=== PATIENT | female | born 1955 | race Caucasian/White ===

== ENCOUNTER 2017-03-02 13:21 | Outpatient (CLI) | payer OTHER | END 2017-03-02 13:22 | disposition home or self-care (01) | DX: Z12.31 Encounter for screening mammogram for malignant neoplasm of breast (principal) ==

== ENCOUNTER 2020-09-03 13:52 | Outpatient (CLI) | payer OTHER ==
--- NOTE | 2020-09-04 15:35 | Mammography Report ---
BILATERAL DIGITAL SCREENING MAMMOGRAM 3D/2D: 09/03/2020 CLINICAL: Routine screening. Comparison is made to exam dated: 03/02/2017 mammogram - [facility]. There are sca ttered fibroglandular elements in both breasts. No significant masses, calcifications, or other findings are seen in either breast. There has been no significant interval change. IMPRESSION: NEGATIVE There is no mammographic evidence of malignancy. A 1 year screening mammogram is recommended. This exam was interpreted at Station ID: [id number]. NOTE: For mammograms, a report in lay terms will be sent to the patient. Approximately 15% of breast malignancies will not be visualized mammographically. In the management of a palpable breast mass, a negative mammogram must not discourage biopsy of a clinically suspicious lesion. Electronically Signed By: Gracie zaman/sowmya:09/03/2020 17:04:13 ACR BI-RADS Category 1: Negative 3341F PARENCHYMAL PATTERN: (A) - The breast(s) demonstrate(s) scattered fibroglandular densities. BI-RADS CATEGORY: (1) - 1 RECOMMENDATION: (ANNUAL) - Recommend routine annual screening mammography. [id number] 1 year screening LATERALITY: (B)
== END 2020-09-03 13:53 | disposition home or self-care (01) ==
LOC: DI 13:52
PROVIDERS: ATTEND Nurse Practitioner Family
DX: Z12.31 Encounter for screening mammogram for malignant neoplasm of breast (principal)
CPT/HCPCS: 77063; 77067

== ENCOUNTER 2021-01-02 11:57 | Emergency (ER) | payer OTHER ==
--- NOTE | 2021-01-02 12:21 | ED Physician Documentation ---
PD HPI CHEST PAIN - Stated complaint Stated Complaint: NAUSEA - Chief complaint Chief Complaint: Abd Pain - History obtained from History obtained from: Patient - Additional information Additional information: 65-year-old woman with history of hypertension and hysterectomy presents with epigastric pain that is postprandial, sometimes immediately after eating and sometimes delayed. Is been going on for the last year. It radiates to the left shoulder. Then she gets nausea and vomits and feels better. She is never had this worked up. Today she presents because last night the vomit was quite bl ack. This the first time that it happened. Review of Systems Ten Systems: 10 systems reviewed and negative Constitutional: denies: Fever, Myalgias, Fatigue Cardiac: denies: Chest pain / pressure, Palpitations Respiratory: denies: Dyspnea, Cough PD PAST MEDICAL HISTORY - Present Medications Home Medications: Ambulatory Orders Medication Instructions Recorded Confirmed Lisinopril [Zestril] 1 tab PO DAILY 01/02/21 01/02/21 Omeprazole 40 mg PO DAILY #30 cap 01/02/21 Ondansetron Odt [Zofran] 4 mg TL Q6H PRN #10 tablet 01/02/21 - Allergies Allergies/Adverse Reactions: Allergies Allergy/AdvReac Type Severity Reaction Status Date / Time Sulfa (Sulfonamide Allergy Itching Verified 01/02/21 12:13 Antibiotics) PD ED PE NORMAL - Vitals Vital signs reviewed: Yes - General General: Alert and oriented X 3, No acute distress - HEENT HEENT: PERRL, EOMI - Neck Neck: Supple, no meningeal sign, No bony TTP - Cardiac Cardiac: RRR, No murmur - Respiratory Respiratory: No respiratory distress, Clear bilaterally - Abdomen Abdomen: Soft, Non tender - Back Back: No CVA TTP, No spinal TTP - Derm Derm: Normal color - Neuro Neuro: Alert and oriented X 3, Normal speech Results - Vitals Vitals: Vital Signs - 24 hr 01/02/21 12:08 Temperature 36.7 C Heart Rate 89 Respiratory 16 Rate Blood Pressure 220/92 H O2 Saturation 96 Oxygen O2 Source Room air - EKG (time done) 1244 Rate: Rate (enter#) (63) Rhythm: NSR [place]: Normal Intervals: Normal IA, Other (borderline IVCD) QRS: Low voltage Ischemia: Normal ST segments Computer interpretation: Agree with computer - Labs Labs: Laboratory Tests 01/02/21 01/02/21 01/02/21 12:30 12:30 12:30 WBC 7.7 RBC 4.34 Hgb 13.1 Hct 40.6 MCV 93.5 MCH 30.2 MCHC 32.3 RDW 13.2 Plt Count 188 MPV 10.4 Neut # (Auto) 5.5 Lymph # (Auto) 1.5 Granite # (Auto) 0.6 Eos # (Auto) 0.0 Baso # (Auto) 0.0 Absolute Nucleated RBC 0.00 Nucleated RBC % 0.0 PT 13.9 H INR 1.3 H Sodium Potassium Chloride Carbon Dioxide Anion Gap BUN Creatinine Estimated GFR (MDRD) Glucose Calcium Total Bilirubin AST ALT Alkaline Phosphatase Troponin I High Sens Total Protein Albumin Globulin Albumin/Globulin Ratio Lipase Blood Type O POSITIVE Antibody Screen NEGATIVE 01/02/21 01/02/21 12:30 12:30 WBC RBC Hgb Hct MCV MCH MCHC RDW Plt Count MPV Neut # (Auto) Lymph # (Auto) Granite # (Auto) Eos # (Auto) Baso # (Auto) Absolute Nucleated RBC Nucleated RBC % PT INR Sodium 139 Potassium 3.4 L Chloride 100 L Carbon Dioxide 24 Anion Gap 15.0 H BUN 13 Creatinine 0.9 Estimated GFR (MDRD) 63 L Glucose 103 H Calcium 9.6 Total Bilirubin 0.9 AST 33 ALT 30 Alkaline Phosphatase 129 H Troponin I High Sens 3.8 Total Protein 7.8 Albumin 4.4 Globulin 3.4 Albumin/Globulin Ratio 1.3 Lipase 28 Blood Type Antibody Screen PD MEDICAL DECISION MAKING - ED course ED course: This is a steven 65-year-old woman with epigastric pain postprandial for a year with black vomitus last night. Her hemodynamics and H&H are reassuring, not clear that this was blood. Given the radiation to the left shoulder a cardiac work-up was also done. Results are normal. She understands that she needs to follow-up for upper endoscopy, note she also has never had a colonoscopy. Will place on a PPI and as needed Zofran in the interim. Departure - Departure Disposition: 01 Home, Self Care Clinical Impression: Abdominal pain Qualifiers: Abdominal location: epigastric Qualified Code(s): R10.13 - Epigastric pain Condition: Good Record reviewed to determine appropriate education?: Yes Instructions: ED PUD Prescriptions: Omeprazole 40 mg PO DAILY #30 cap Ondansetron Odt [Zofran] 4 mg TL Q6H PRN #10 tablet PRN Reason: Nausea / Vomiting Comments: As discussed, it seems most likely that your pain is from ulcer disease, next most appropriate test would be upper endoscopy. Call your primary care provider and discuss to obtain referral. We are starting a proton pump inhibitor in the meantime which should be helpful and nausea medicine as needed. As discussed, you are also overdue for colonoscopy, she may well as well refer you for both at the same time. Return if worsening or if new symptoms develop.
[2021-01-02 12:38] LABS: BASOPHILS % (AUTO) 0.4 %; EOSINOPHILS % (AUTO) 0.3 %; HCT - HEMATOCRIT 40.6 % (37.0-47.0); HGB - HEMOGLOBIN 13.1 g/dL (12.0-16.0); LYMPHOCYTES # (AUTO) 1.5 10^3/uL (1.5-3.5); LYMPHOCYTES % (AUTO) 19.8 %; MEAN CORPUSCULAR HEMOGLOBIN 30.2 pg (27.0-31.0); MEAN CORPUSCULAR HGB CONC 32.3 g/dL (32.0-36.0); MEAN CORPUSCULAR VOLUME 93.5 fL (81.0-99.0); MEAN PLATELET VOLUME 10.4 fL (7.9-10.8); MONOCYTES # (AUTO) 0.6 10^3/uL (0.0-1.0); MONOCYTES % (AUTO) 7.5 %; NEUTROPHILS # (AUTO) 5.5 10^3/uL (1.5-6.6); NEUTROPHILS % (AUTO) 71.7 %; PLT - PLATELET COUNT 188 10^3/uL (130-450); RED BLOOD COUNT 4.34 10^6/uL (4.20-5.40); RED CELL DISTRIBUTION WIDTH 13.2 % (12.0-15.0); WHITE BLOOD COUNT 7.7 x10^3/uL (4.8-10.8)
[2021-01-02 12:43] LABS: INR 1.3 (0.8-1.2); PT - PROTHROMBIN TIME 13.9 secs (9.9-12.6)
[2021-01-02 12:58] LABS: ALBUMIN 4.4 g/dL (3.2-5.5); ALBUMIN/GLOBULIN RATIO 1.3 (1.0-2.2); BILIRUBIN,TOTAL 0.9 mg/dL (0.2-1.0); CALCIUM 9.6 mg/dL (8.5-10.3); CREATININE 0.9 mg/dL (0.4-1.0); POTASSIUM 3.4 mmol/L (3.5-5.0); TOTAL PROTEIN 7.8 g/dL (6.7-8.2)
[2021-01-02 13:56] VITALS: BP 159/84
== END 2021-01-02 13:56 | disposition home or self-care (01) ==
LOC: ED 11:57
DX: R10.13 Epigastric pain (principal); R11.2 Nausea with vomiting, unspecified; M25.512 Pain in left shoulder; I10 Essential (primary) hypertension
CPT/HCPCS: 80053; 83690; 84484; 85025; 85610; 86850; 86900; 86901; 93005; 99283

== ENCOUNTER 2021-02-26 07:23 | Outpatient (CLI) | payer OTHER ==
--- NOTE | 2021-02-26 10:14 | Ultrasound Report ---
PROCEDURE: Abdomen Limited INDICATIONS: RUQ PAIN TECHNIQUE: Real-time focused scanning was performed of the abdomen, with image documentation. COMPARISON: None. FINDINGS: Limited right upper quadrant ultrasound at clinician request. The liver is echogenic, cons istent with fatty infiltration but no hepatic mass or intrahepatic biliary distention is found. The g allbladder contains a large immobile stone at the gallbladder neck, measuring up to 2.3 cm but the ga llbladder wall is normal in thickness at 2.6 mm. There is irregular margination at the gallbladder fu ndus where a possible mass lesion measuring up to 1.3 x 1.2 x 0.9 cm is found. This appears to have a small amount of internal blood flow on limited duplex Doppler sonographic assessment. IMPRESSION: Relatively large gallstone fixed in position at the gallbladder neck, with no generalized gallbladder wall thickening that would indicate definite acute cholecystitis. However, there is focal thickening of the gallbladder wall with internal blood flow at the gallbladder fundus margin, which could repre sent focal cholecystitis and even possibly a gallbladder neoplasm. Given these findings surgical cons ultation appears warranted. Reviewed by: Jonathan Ty MD on 02/26/2021 10:12 AM PDT Approved by: Jonathan Ty MD on 02/26/2021 10:12 AM PDT Station ID: [id number]
== END 2021-02-26 07:24 | disposition home or self-care (01) ==
LOC: DI 07:23
PROVIDERS: ATTEND Surgery
DX: K80.20 Calculus of gallbladder without cholecystitis without obstruction (principal); R93.2 Abnormal findings on diagnostic imaging of liver and biliary tract

== ENCOUNTER 2021-02-28 08:46 | Outpatient (CLI) | payer OTHER ==
[2021-02-28 09:32] LABS: ALBUMIN 4.3 g/dL (3.2-5.5); ALBUMIN/GLOBULIN RATIO 1.4 (1.0-2.2); BILIRUBIN,TOTAL 0.8 mg/dL (0.2-1.0); CALCIUM 9.3 mg/dL (8.5-10.3); CREATININE 0.8 mg/dL (0.4-1.0); POTASSIUM 3.7 mmol/L (3.5-5.0); TOTAL PROTEIN 7.3 g/dL (6.7-8.2)
== END 2021-02-28 08:47 | disposition home or self-care (01) ==
LOC: LAB 08:46
PROVIDERS: ATTEND Surgery
DX: Z13.228 Encounter for screening for other metabolic disorders (principal)
CPT/HCPCS: 36415; 80053

== ENCOUNTER 2021-03-21 13:59 | Outpatient (CLI) | payer OTHER | END 2021-03-21 14:00 | disposition home or self-care (01) | LOC: COV 13:59 | PROVIDERS: ATTEND Surgery | DX: Z01.812 Encounter for preprocedural laboratory examination (principal); K80.20 Calculus of gallbladder without cholecystitis without obstruction; Z20.822 Contact with and (suspected) exposure to COVID-19 ==

== ENCOUNTER 2021-03-24 06:16 | Day surgery (SDC) | payer OTHER ==
[~2021-03-24 06:16] MED LIST: ceFAZolin 2 GM/50 ML 2 GM/50 ML BAG IV ONE
--- OUTSIDE RECORDS SUMMARY | 2021-03-24 06:18 | EXTERNAL MEDICAL SUMMARY RPT | Continuity of Care Document ---
:1955 Demographics Phone Unavailable Preferred Language Unknown Marital Status Unknown Scientology Affiliation Unknown Race Unknown Ethnic Group Unknown Author Organization [facility] Address [address] [phone] Phone Allergies Encounters Medications Problems Results
[2021-03-24] MEDS ORDERED: LACTATED RINGERS 1,000 ML IV ONE (06:28)
[2021-03-24 06:41] VITALS: BP 150/81
[2021-03-24] MEDS ORDERED: PROPOFOL 200 MG/20 ML VIAL IVP ONE (07:12)
[2021-03-24] MEDS ORDERED: ROCURONIUM 50 MG/5 ML VIAL ONE (07:13)
[2021-03-24] MEDS ORDERED: BUPIVACAINE 0.5% PF 30 ML VIAL ONE (07:13)
[2021-03-24] MEDS ORDERED: MIDAZOLAM 2 MG/2 ML VIAL ONE (07:14)
[2021-03-24] MEDS ORDERED: fentaNYL 100 MCG/2 ML VIAL ONE (07:14)
[2021-03-24] MEDS ORDERED: LIDOCAINE-MPF 2% 5 ML VIAL ONE (07:15)
--- NOTE | 2021-03-24 07:21 | ANESTHESIA ---
Pre-Anesthesia VS, & Labs - Diagnosis symptomatic cholelithiasis - Procedure lapararoscopic cholecystectomy Vital Signs: Temp Pulse Resp BP Pulse Ox 36.2 C L 65 16 150/81 H 99 03/24/21 06:39 03/24/21 06:39 03/24/21 06:39 03/24/21 06:39 03/24/21 06:39 Height: 5 ft 8 in Weight (kg): 89.9 kg Body Mass Index: 30.1 BMI Classification: Obese - NPO >8 hours - Is Patient ?: No - Lab Results Lab results reviewed: Yes Home Medications and Allergies Lisinopril [Zestril] 40 mg PO QPM 01/02/21 Allergies/Adverse Reactions: Allergies Allergy/AdvReac Type Severity Reaction Status Date / Time Sulfa (Sulfonamide Allergy Itching Verified 03/24/21 06:47 Antibiotics) Anes History & Medical History - Anesthetic History Anesthesia Complications: reports: No previous complications Family history of Anesthesia Complications: Denies Family history of Malignant Hyperthermia: Denies - Medical History Cardiovascular: reports: Hypertension, Murmur Pulmonary: reports: None Gastrointestinal: reports: Cholelithiasis Urinary: reports: None Musculoskeletal: reports: None Endocrine/Autoimmune: reports: None Skin: reports: None Smoking Status: Never smoker - Surgical History Gynecologic: reports: Hysterectomy Exam General: Alert, Oriented x3, Cooperative Dental: WNL Mouth Openin Fingerbreadth Neck Mobility: Normal Mallampati classification: II Thyromental Distance: 4-6 cm Respiratory: Lungs clear, Normal breath sounds, No respiratory distress Cardiovascular: Regular rate Neurological: Normal speech Mental/Cognitive Status: Alert/Oriented X3, Normal for patient Plan Anesthesia Type: General Consent for Procedure(s) Verified and Reviewed: Yes Code Status: Attempt Resuscitation ASA classification: 2-Mild systemic disease Is this case an emergency?: No
== END 2021-03-24 06:17 | disposition home or self-care (01) ==
LOC: SDS 06:16
PROVIDERS: ATTEND Surgery
DX: Z53.9 Procedure and treatment not carried out, unspecified reason (principal)

== ENCOUNTER 2021-03-27 06:33 | Day surgery (SDC) | payer OTHER ==
--- OUTSIDE RECORDS SUMMARY | 2021-03-27 06:35 | EXTERNAL MEDICAL SUMMARY RPT | Continuity of Care Document ---
:1955 Demographics Phone Unavailable Preferred Language Unknown Marital Status Unknown Anabaptism Affiliation Unknown Race Unknown Ethnic Group Unknown Author Organization [facility] Address [address] [phone] Phone Allergies Encounters Medications Problems Results
[2021-03-27] MEDS ORDERED: LACTATED RINGERS 1,000 ML IV ONE ×2 (06:42→09:44)
[2021-03-27] MEDS ORDERED: MIDAZOLAM 2 MG/2 ML VIAL ONE (06:51)
[2021-03-27] MEDS ORDERED: fentaNYL 100 MCG/2 ML VIAL ONE ×2 (06:51→09:24)
[2021-03-27] MEDS ORDERED: ROCURONIUM 50 MG/5 ML VIAL ONE (06:53)
[2021-03-27] MEDS ORDERED: LIDOCAINE-MPF 2% 5 ML VIAL ONE (06:53)
[2021-03-27] MEDS ORDERED: PROPOFOL 200 MG/20 ML VIAL IVP ONE (06:53)
[2021-03-27] MEDS ORDERED: BUPIVACAINE 0.5% PF 30 ML VIAL ONE (07:18)
[2021-03-27] MEDS ORDERED: IOTHALAMATE MEGLUMINE 50 ML VIAL ONE (07:18)
[2021-03-27] MEDS ORDERED: MORPHINE 2 MG/ML CARPUJECT IVP PRN (07:24)
[2021-03-27] MEDS ORDERED: fentaNYL 100 MCG/2 ML VIAL IVP PRN (07:24)
[2021-03-27] MEDS ORDERED: HYDROmorphone 0.5 MG/0.5 ML SYRINGE IVP PRN ×2 (07:24→09:46)
[2021-03-27] MEDS ORDERED: ATROPINE ABBOJECT 1 MG/10 ML SYRINGE IVP PRN (07:24)
[2021-03-27] MEDS ORDERED: ONDANSETRON 4 MG/2 ML VIAL IVP PRN ×2 (07:24→09:46)
[2021-03-27] MEDS ORDERED: NALOXONE 0.4 MG/ML VIAL IVP PRN (07:24)
[2021-03-27] MEDS ORDERED: LACTATED RINGERS 1,000 ML IV SCH (08:00)
[2021-03-27] MEDS ORDERED: ACETAMINOPHEN 1,000 MG/100 ML 100 ML IV ONE (08:04)
[2021-03-27] MEDS ORDERED: GLYCOPYRROLATE 1 MG/5 ML VIAL ONE (08:16)
[2021-03-27] MEDS ORDERED: NEOSTIGMINE 1 MG/1 ML 10 ML MDV ONE (09:09)
[2021-03-27] MEDS ORDERED: BUPIVACAINE 0.5% PF 30 ML VIAL INFIL ONE (09:18)
[2021-03-27] MEDS ORDERED: KETOROLAC 30 MG/ML VIAL ONE (09:22)
--- NOTE | 2021-03-27 09:37 | OPERATIVE REPORT ---
Operative Report - General Planned Procedure: Laparoscopic cholecystectomy Pre-Op Diagnosis: Symptomatic cholelithiasis Procedure Performed: Laparoscopic cholecystectomy and adhesiolysis Post Op Diagnosis: Same with significant adhesions and scarring - Procedure Note Primary Surgeon: Oj Collado MD Anesthesia Provider: Calos Sawant CRNA Anesthesia Technique: General LMA IV Fluids (mL): 1,000 Estimated Blood Loss (mL): 20 Drain/Tube Type: Other (None.) Findings: Significant adhesions and scarring making visualization impossible without adhesiolysis Complications: None. - Other Other Information/Narrative: After verbal and written informed consent was obtained detailing the operation, the alternatives to the operation including no operation, risks of infection, bleeding requiring transfusion with its risks, nerve injury, and and after I met with the patient confirming the surgery, the patient was brought to the operative suite and placed supine on the operating table. Great care was taken to avoid pressure points to prevent pressure necrosis or nerve injury. Monitoring devices were applied along with TEDs and pneumatic compressive stockings (to prevent DVT). The patient received preoperative antibiotics for surgical prophylaxis. Calos Sawant sedated and anesthetized the patient for the entire procedure. The patient was prepped and draped in usual sterile manner. A "time in" then confirmed that the patient was identified with 3 identifiers (name, date, and medical record number), the history and physical was in the chart, the signed consent confirming the procedure was in the chart, the patient was in the correct position, the aforementioned prophylactic measures were in place were given, we had the correct personnel and equipment to complete the procedure and that anesthesia, and the surgical team was given an opportunity to express any concerns. With the agreement of everyone in the room, we proceeded with the operation. The initial incision was at the umbilicus and dissection to the linea alba was completed using blunt dissection. The linea alba was grasped with a Carlitos and incised. In a similar manner the peritoneum was grasped and incised using Metzenbaum scissors. In this location, a 12 mm blunt tipped, balloon tipped port was placed and the balloon was inflated to keep the port in position. The abdominal cavity was insufflated with carbon dioxide to a steady-state pressure of 15 mmHg. 3 additional 5 mm ports were placed in standard locations for laparoscopic cholecystectomy (subxiphoid and 2 right subcostal) under direct vision of the 30 degree laparoscope and without incident. The patient was then placed in reverse Trendelenburg position and was rotated slightly to their left. Multiple adhesions of the liver and omentum to the anterior abdominal wall precluded direct visualization of the gallbladder. These were taken down sharply using laparoscopic scissors. The adhesions as well as a very large falciform ligament did not allow for standard placement of the epigastric port. This was placed slightly to the patient's left. The gallbladder fundus was grasped with an atraumatic grasper. There was also significant scarring of the omentum to the liver and gallbladder that was taken down with difficulty using sharp dissection blunt dissection and Bovie electrocautery. Eventually, I identified the infundibulum and this was then grasped and retracted superiorly and laterally. Dissection was then begun at the angle of Calot. The cystic duct and (slightly medially and posteriorly), cystic artery were clearly identified. The critical view was obtained and a photograph taken. 2 clips proximally and one clip distally were used to control both the cystic duct and cystic artery. The clips were carefully placed to avoid occluding the juncture with the common bile duct. Both the cystic duct and then the cystic artery were then transected with laparoscopic costa. There was a second artery posterior and lateral to the initial artery that needed to be controlled using 2 clips. The gallbladder was then removed from its fossa in a retrograde manner using electrocautery. With the 30 degree 5 mm scope in the subxiphoid position, the gallbladder was placed in an Endo Catch bag to be extracted through the 12 mm port site. I irrigated the right upper quadrant with liter of warm sterile saline and the area was aspirated dry. I inspected the gallbladder fossa and there was no bleeding or bile leak. Clips on the cystic duct and cystic artery appeared to be secure. I briefly visually explored the abdomen. There was no other evidence of overt pathology. I injected the port sites at the peritoneal, fascial, and skin levels under direct vision with 0.5% Marcaine. All ports and the Endo Catch containing the gallbladder were removed. Following gallbladder removal, the remaining carbon dioxide was expelled from the abdomen. The fascia the umbilicus was approximated using 3 simple 0 Vicryl sutures. The skin at each port site was approximated using a subcuticular 4-0 Monocryl. The skin was prepped with benzoin and Steri-Strips were applied. At this point a "timeout" was performed that confirmed that all counts were correct, the procedure that was performed, the blood loss, the IV fluids administered, the patient's condition and any concerns of the operating team had. Dressings were then applied. Having tolerated the procedure well, the patient was extubated and taken to recovery room in good and stable condition. The plan is for outpatient discharge when the patient is adequately recovered. This document was created in part using voice recognition technology. Because of the inherent limitations of the system, occasional same sounding word substitutions and grammatical errors do occur and persist despite proofreading. Please read this document for context.
[2021-03-27] MEDS ORDERED: HYDROcod/ACETAM 5/325 MG TABLET PO PRN (09:46)
[2021-03-27 10:31] VITALS: BP 124/79
--- NOTE | 2021-03-27 12:09 | ANESTHESIA POST OP EVALUATION ---
Anesthesia Post Eval - Post Anesthesia Eval Vitals: Last Vital Signs Temp 36.3 C L 03/27/21 10:27 Pulse 59 L 03/27/21 10:27 Resp 14 03/27/21 10:27 BP 124/79 03/27/21 10:27 Pulse Ox 97 03/27/21 10:27 CV Function Including HR & BP: Stable Pain Control: Satisfactory Nausea & Vomiting: Negative Mental Status: Baseline Respiratory Status: Airway Patent Hydration Status: Satisfactory Anesthesia Complications: None
== END 2021-03-27 06:34 | disposition home or self-care (01) ==
LOC: SDS 06:33
PROVIDERS: ATTEND Surgery
PROC: 0FT44ZZ Resection of Gallbladder, Percutaneous Endoscopic Approach (ICD-10-PCS; principal; 2021-03-27 07:30)
DX: K81.1 Chronic cholecystitis (principal); E66.9 Obesity, unspecified; Z68.30 Body mass index [BMI] 30.0-30.9, adult
CPT/HCPCS: 47562; 88304; J0131; J0690; J7120; Q9961

== ENCOUNTER 2021-12-16 07:32 | Outpatient (CLI) | payer OTHER ==
[2021-12-16 08:04] LABS: ALBUMIN 4.2 g/dL (3.2-5.5); ALBUMIN/GLOBULIN RATIO 1.2 (1.0-2.2); ALKALINE PHOSPHATASE 127 IU/L (42-121); ALT ALANINE AMINOTRANSFERASE 21 IU/L (10-60); AST ASPARTATE AMINOTRANSFERASE 20 IU/L (10-42); BUN - BLOOD UREA NITROGEN 17 mg/dL (6-20); CALCIUM 9.2 mg/dL (8.5-10.3); CARBON DIOXIDE - CO2 27 mmol/L (21-32); CHLORIDE 104 mmol/L (101-111); CHOL/HDL RATIO 4.2 (<4.4); CHOLESTEROL 217 mg/dL; GFR - MDRD 56 (>89); GLUCOSE 105 mg/dL (70-100); HDL CHOLESTEROL 52 mg/dL; LDL CHOLESTEROL,CALCULATED 125 mg/dL; LDL/HDL RATIO 2.4 (<4.4); POTASSIUM 3.8 mmol/L (3.5-5.0); SODIUM 142 mmol/L (135-145); TOTAL PROTEIN 7.6 g/dL (6.7-8.2); TRIGLYCERIDES 201 mg/dL; VLDL CHOLESTEROL 40 mg/dL
[2021-12-16 08:16] LABS: THYROID STIMULATING HORMONE 5.6 uIU/mL (0.34-5.60)
== END 2021-12-16 07:33 | disposition home or self-care (01) ==
LOC: LAB 07:32
PROVIDERS: ATTEND Nurse Practitioner Family
DX: I10 Essential (primary) hypertension (principal); E78.5 Hyperlipidemia, unspecified
CPT/HCPCS: 36415; 80053; 80061; 83721; 84443

== ENCOUNTER 2022-07-16 16:03 | Outpatient (CLI) | payer OTHER | END 2022-07-16 16:04 | disposition home or self-care (01) | LOC: RT 16:03 | PROVIDERS: ATTEND Nurse Practitioner Family | DX: Z01.810 Encounter for preprocedural cardiovascular examination (principal) | CPT/HCPCS: 93005 ==